=== PATIENT | male | born 1980 | race Caucasian/White ===

== ENCOUNTER → 2017-07-18 | Emergency (ER) | payer OTHER | LOC: ED 18:56 | DX: Z53.21 Procedure and treatment not carried out due to patient leaving prior to being seen by health care provider (principal) ==

== ENCOUNTER 2017-07-23 13:33 | Emergency (ER) | payer OTHER ==
[2017-07-23 14:35] LABS: Basophils # (Auto) 0.1 K/mm3 (0.0-0.1); Basophils % (Auto) 1.8 % (0.0-1.8); Eosinophils # (Auto) 0.8 K/mm3 (0.0-0.4); Eosinophils % (Auto) 10.6 % (0.0-4.3); Hematocrit 45.8 % (35.5-45.6); Hemoglobin 15.1 gm/dl (11.8-15.2); Lymphocytes # (Auto) 1.2 K/mm3 (1.2-5.4); Lymphocytes % (Auto) 16.1 % (13.4-35.0); Mean Corpuscular HGB Conc 33 % (32-34); Mean Corpuscular Hemoglobin 32 pg (28-32); Mean Corpuscular Volume 95 fl (84-94); Monocytes # (Auto) 0.7 K/mm3 (0.0-0.8); Monocytes % (Auto) 8.6 % (0.0-7.3); Platelet Count 352 K/mm3 (140-440); Red Blood Count 4.81 M/mm3 (3.65-5.03); Red Cell Distribution Width 14.7 % (13.2-15.2)
[2017-07-23 14:47] LABS: BUN/Creatinine Ratio 14; Blood Urea Nitrogen 11 mg/dL (9-20); Calcium 9.4 mg/dL (8.4-10.2); Hemolysis Index 24
--- NOTE | 2017-07-23 15:11 | XRay Report ---
ROUTINE CHEST, TWO VIEWS: HISTORY: Shortness of breath. The trachea, heart, mediastinal contour, lung enrique and bony thorax are unremarkable. IMPRESSION: Unremarkable chest x-ray.
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
--- NOTE | 2017-07-24 01:10 | XRay Report ---
FINAL REPORT EXAM: XR RIBS UNILAT 2V LT HISTORY: rib pain left TECHNIQUE: Three views of the left ribs were obtained. FINDINGS: There is no evidence acute fracture or pleural effusion. There is no evidence of pneumothorax. The soft tissues are well maintained. IMPRESSION: Within normal limits
[2017-07-24 01:25] VITALS: BP 131/88
== END 2017-07-24 02:05 | disposition home or self-care (01) ==
LOC: ED 13:33
DX: S20.212D Contusion of left front wall of thorax, subsequent encounter (principal); X58.XXXD Exposure to other specified factors, subsequent encounter
CPT/HCPCS: 36415; 71046; 80048; 85025; 93005; 93010; 99284